=== PATIENT | male | born 1935 | race Caucasian/White ===

== ENCOUNTER 2019-06-23 12:47 | Inpatient (IN) | payer MEDICARE, SELFPAY ==
[2019-06-23] VITALS (7 sets, daily range): BP systolic 138–182; BP diastolic 80–98; PULSE 74–89; RESP 15–20; TEMP 36.4–37.2; O2SAT 92–98; BMI 27.1
--- NOTE | 2019-06-23 12:55 | ED_ITS ---
Entered by Raquel Madera, acting as scribe for Rhonda Hastings MD, [facility] [place] - Fall General: Chief Complaint: Fall Stated Complaint: FALL Time Seen by Provider: 06/23/19 12:55 Source: patient Mode of arrival: EMS Limitations: no limitations History of Present Illness: HPI Narrative: 84 yo Male presents to the ED with complaint of fall. Pt states that he went to the bathroom and was coming out his legs got weak and gave out causing him to fall. Pt states that his fall happened yesterday around 1600. Pt states that he stayed in the floor because he was afraid he would fall again and really get hurt. Pt states that he has pain on his left arm. Pt states that he is on warfarin. Pt states that he has some abdominal tenderness on the left side. Pt states that he has pain to his left ankle and leg with some mild swelling. Pt states that he gets Botox injections for his neck pain. complaint: fall Onset (ago): day(s) Fall from: standing Fall witnessed: no Place fall occurred: home Loss of consciousness: None Prolonged down time: yes Symptoms prior to fall: none Context: other (legs gave out) Location of injury: neck, chest and abdomen Location of injury - extremities: Left: arm, lower leg and ankle Associated symptoms-after fall: Reports abdominal pain and weakness; Denies chest pain, headache(s), neck pain or short of breath Review of Systems General: Reports: 10 or more systems reviewed and unremarkable except in HPI and below Const: Denies: fever, chills or body aches Eyes: Denies: change in vision or blurry vision ENMT: Denies: throat pain, enlarged tonsils, painful swallowing, hoarseness, mouth pain or swelling of lips/tongue Card: Denies: chest pain, palpitations, irregular heart rhythm, edema or swelling of feet/ankles Resp: Denies: shortness of breath, productive cough or non-productive cough GI: Reports: abdominal pain; Denies: nausea or vomiting : Denies: flank pain, painful urination, urinary frequency, urinary urgency or urinary hesitancy Musc: Reports: back pain, extremity pain and extremity swelling; Denies: neck pain Skin/Breast: Denies: rash, itching or redness Neuro: Denies: headache, numbness in extremities or weakness in extremities Endo: Denies: excessive urination, excessive thirst or tired all the time PFSH ED PFSH: Social History Smoking and tobacco status: former smoker Physical Exam Const: COMMON NORMALS: no apparent distress, average body habitus, oriented x3, no limitations, healthy appearing, alert and well nourished HENMT: COMMON NORMALS: normocephalic, head/scalp atraumatic and moist oral mucous membranes HEAD & SCALP: normocephalic and atraumatic Eye: COMMON NORMALS: PERRL, EOMs intact bilaterally, conjunctivae normal and no scleral icterus CONJUNCTIVA: Yes conjunctivae normal PUPIL: Yes PERRL Neck/C-Spine: COMMON NORMALS: full ROM, supple, no meningeal signs, no JVD and no carotid bruits Chest: COMMONS NORMALS: palpation of chest normal; negative for inspection of chest normal CHEST: Yes abnormal inspection of the chest (bruising) OTHER: bruising in lower chest duke Resp: COMMON NORMALS: normal respiratory effort, no retractions, no use of accessory muscles, clear to auscultation bilaterally and percussion normal AUSCULTATION: clear to auscultation bilaterally PERCUSSION: percussion normal Cardio: COMMON NORMALS: no JVD, regular rate, regular rhythm, S1 normal heart sound, S2 normal heart sound, no gallops, no clicks, no murmurs, no rub and peripheral pulses 2+ throughout RATE: regular rate RHYTHM: regular rhythm HEART SOUNDS: S1 normal and S2 normal PERIPHERAL PULSES: pulses 2+ throughout GI: COMMON NORMALS: normal to inspection, nondistended, normoactive bowel sounds, soft to palpation, no hepatosplenomegaly, no masses and no bruits; negative for non-tender PALPATION: Yes soft, Yes tender Details: LLQ and LUQ and Yes no hepatosplenomegaly : COMMON NORMALS: Yes no CVA tenderness BLADDER/KIDNEY EXAM: Yes no CVA tenderness Back/Pelvis: COMMON NORMALS: no CVA tenderness Extremity: COMMON NORMALS: normal to inspection, full ROM, normal capillary refill, no calf tenderness and no pedal edema LEFT LOWER EXTREMITY: Yes lower leg Left lower leg: Yes inspection (swelling) and Yes palpation (tenderness) and Yes ankle joint Left ankle: Yes inspection (swelling) and Yes palpation (tenderness) Neuro: COMMON NORMALS: oriented x3 SENSORIUM/ORIENTATION: Yes alert MENINGEAL SIGNS: Yes no meningeal signs Skin: COMMON NORMALS: no rashes or lesions noted, no wounds, skin turgor normal, no jaundice, no petechiae and no mottling GENERAL SKIN EXAM: no rashes or lesions noted and turgor normal Course Consultations: Consultation #1: Dr. Flores, hospitalist. He kindly accepted the patient to his service. Time: 15:30 Vital Signs: Vital signs: Vital Signs Temperature 98.2 F 06/23/19 12:47 Pulse Rate 79 06/23/19 15:28 Respiratory Rate 18 06/23/19 15:28 Blood Pressure 177/93 06/23/19 15:28 Pulse Oximetry 93 06/23/19 15:28 MDM - Fall MDM Narrative: Medical decision making narrative: 84-year-old gentleman who fell at home yesterday and had been laying on the ground for about 20 hours. Evaluation in the emergency department was negative for acute fractures or intracranial hemorrhage. He however has rhabdomyolysis that is significant. He is therefore being admitted for fluid hydration and monitoring of his status. Medical Records: Attestation: I reviewed the patient's medical records. Lab Data: Attestation: I reviewed the patient's lab results. Labs: Lab Results 06/23/19 06/23/19 06/23/19 Range/Units 13:20 13:20 13:20 WBC 9.8 (4.0-10.0) 10^3/ uL RBC 4.55 (4.1-5.3) 10^6/u L Hgb 14.0 (11.7-16.6) g/dL Hct 44.2 (42.0-52.0) % MCV 97.1 H (80-94) fL MCH 30.8 (28.0-34.0) pg MCHC 31.7 (30.0-36.0) g/dL RDW 13.6 (12.1-15.1) % Plt Count 174 (130-400) 10^3/c mm MPV 10.0 (7.4-10.4) fL Neut % (Auto) 83.3 % Lymph % (Auto) 5.1 % [place] % (Auto) 11.3 % Eos % (Auto) 0.0 % Baso % (Auto) 0.1 % Neut # (Auto) 8.2 H (1.8-7.7) 10^3/u L Lymph # (Auto) 0.5 L (0.8-4.8) 10^3/u L [place] # (Auto) 1.1 H (0.2-0.9) 10^3/u L Eos # (Auto) 0.0 (0.0-0.8) 10^3/u L Baso # (Auto) 0.0 (0.0-0.1) 10^3/u L Nucleated RBC % (a uto) 0 % Nucleated RBCs # 0.0 /100WBC PT 24.90 H (10.5-13.3) SECO NDS INR 2.23 H (0.8-1.2) Sodium 136 (136-145) mmol/L Potassium 4.6 (3.5-5.1) mmol/L Chloride 103 (98-107) mmol/L Carbon Dioxide 21 L (22-29) mmol/L Anion Gap 16.6 (5-19) BUN 27 H (8-23) mg/dL Creatinine 1.0 (0.7-1.2) mg/dL Glucose 132 H (65-115) mg/dL Calculated Osmolal ity 281 L (285-295) mOsm/k g Lactate (0.5-2.2) mmol/L Calcium 8.7 (8.5-10.5) mg/dL Total Bilirubin 0.6 (0.15-1.2) mg/dL AST 222 H (0-40) U/L ALT 50 H (0-41) U/L Alkaline Phosphata se 53 (40-130) IU/L Creatine Kinase 88038 H* (39-308) U/L Total Protein 6.5 L (6.6-8.7) g/dL Albumin 3.5 (3.5-5.2) g/dL Globulin 3.0 (1.3-4.6) g/dL 06/23/19 Range/Units 13:20 WBC (4.0-10.0) 10^3/ uL RBC (4.1-5.3) 10^6/u L Hgb (11.7-16.6) g/dL Hct (42.0-52.0) % MCV (80-94) fL MCH (28.0-34.0) pg MCHC (30.0-36.0) g/dL RDW (12.1-15.1) % Plt Count (130-400) 10^3/c mm MPV (7.4-10.4) fL Neut % (Auto) % Lymph % (Auto) % [place] % (Auto) % Eos % (Auto) % Baso % (Auto) % Neut # (Auto) (1.8-7.7) 10^3/u L Lymph # (Auto) (0.8-4.8) 10^3/u L [place] # (Auto) (0.2-0.9) 10^3/u L Eos # (Auto) (0.0-0.8) 10^3/u L Baso # (Auto) (0.0-0.1) 10^3/u L Nucleated RBC % (a uto) % Nucleated RBCs # /100WBC PT (10.5-13.3) SECO NDS INR (0.8-1.2) Sodium (136-145) mmol/L Potassium (3.5-5.1) mmol/L Chloride (98-107) mmol/L Carbon Dioxide (22-29) mmol/L Anion Gap (5-19) BUN (8-23) mg/dL Creatinine (0.7-1.2) mg/dL Glucose (65-115) mg/dL Calculated Osmolal ity (285-295) mOsm/k g Lactate 1.7 (0.5-2.2) mmol/L Calcium (8.5-10.5) mg/dL Total Bilirubin (0.15-1.2) mg/dL AST (0-40) U/L ALT (0-41) U/L Alkaline Phosphata se (40-130) IU/L Creatine Kinase (39-308) U/L Total Protein (6.6-8.7) g/dL Albumin (3.5-5.2) g/dL Globulin (1.3-4.6) g/dL Imaging Data^: CT Head: Radiologist's impression: [address] [address] [address] Scan Report Signed Patient: Rios Welsh #: [id number] : 5Acct#:[id number] Age/Sex: 84 / MADM Date: 06/23/19 Loc: ERRoom/Bed: Attending Dr: Ordering Provider/Ordering MD: Rhonda Hastings MD, [facility] [place] of Service: 06/23/19 Procedure(s): CT head wo con* [id number] Accession Number(s): [id number] Report Number: [id number] WS: [id number] CT scan of the head, 06/23/2019 Clinical Data: fall Comparison: CT head, 03/28/2017. DLP: 898.[address] scans at [facility] use at least one of these dose optimization techniques: automated exposure control; mA and/or kV adjustment per patient size (includes targeted exams where dose is matched to clinical indication); or iterative reconstruction. Findings: The ventricular system is moderately dilated without shift. No recent infarct or hemorrhage is seen. There are no abnormal intracerebral masses. The cerebellum and brainstem are not remarkable. Bony windows of the skull and skull base show no fractures or erosions. The mastoid air cells, internal auditory canals, sella turcica and intraorbital contents. The paranasal sinuses show mucosal thickening of the ethmoid, maxillary and sphenoid sinuses.. CT/CT head wo con* [id number] Impression: Negative CT scan of the head Dictated By:Valerie Dawson MD Signed By:Valerie Dawson MDSigned Date/Time:06/23/19 1404 DD/ 1358 CT C-Spine: Radiologist's impression: [address] [address] [address] Scan Report Signed Patient: Rios Welsh #: [id number] : 5Acct#:[id number] Age/Sex: 84 / MADM Date: 06/23/19 Loc: ERRoom/Bed: Attending Dr: Ordering Provider/Ordering MD: Rhonda Hastings MD, [facility] [place] Date of Service: 06/23/19 Procedure(s): CT cervical spin wo con* [id number] Accession Number(s): [id number] Report Number: [id number] WS: [id number] CT cervical spine. Additional two-dimensional coronal and sagittal reconstruction was performed. 06/23/2019 Clinical Data: fall Comparison: None. DLP: 836.[address] scans at [facility] use at least one of these dose optimization techniques: automated exposure control; mA and/or kV adjustment per patient size (includes targeted exams where dose is matched to clinical indication); or iterative reconstruction. Findings: No compression fractures are seen. There is degenerative disc narrowing at C5- C6, C6-C7 and C7-T1. There are subluxations at C3-C4, C4-C5, C5-C6, C6-C7 and C7-T1 of approximately 0.2 cm. These subluxations are probably arthritic in nature and unrelated to trauma. Osteoarthritic changes of facet joints is seen from C2-C3 through C6-C7. The spinous processes are in good alignment. The odontoid is unremarkable. There is no prevertebral soft tissue swelling. The soft tissues of the cervical spine and the lung apices are not remarkable. CT/CT cervical spin wo con* [id number] Impression: 1. Negative for cervical spine fracture 2. 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 3. 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 Dictated By:Valerie Dawson MD Signed By:Valerie Dawsonigned Date/Time:06/23/19 1411 DD/ 1404 Discharge Plan Discharge Patient Disposition: Admitted As Inpatient Clinical Impression: Traumatic rhabdomyolysis, Fall Condition: Stable Prescriptions: No Action primidone 50 mg tablet 50 mg PO DAILY RF: 0 isosorbide mononitrate 30 mg tablet extended release 24 hr 30 mg PO DAILY RF: 0 levothyroxine 75 mcg tablet 75 mcg PO DAILY RF: 0 baclofen 10 mg tablet 10 mg PO TID RF: 0 warfarin 5 mg tablet See Rx Instructions .ROUTE .COMPLEX RF: 0 nitroglycerin 0.4 mg tablet, sublingual 0.4 mg sublingual PRN PRN (Reason: Chest Pain) RF: 0 pravastatin 20 mg tablet 20 mg PO DAILY RF: 0 Referrals: Guy Garcia [Family Provider] - Coding Level of Care Code ED Pump Technician for Chg Fwd Exam Comprehensive The documentation recorded by the Santy conti Carmen, accurately reflects the service I personally performed and the decisions made by me, Rhonda Hastings MD, [facility] [place] Jun 23, 2019 12:47
--- NOTE | 2019-06-23 13:06 | CT_ITS ---
WS: [id number] CT cervical spine. Additional two-dimensional coronal and sagittal reconstruction was performed. 06/22 Clinical Data: fall Comparison: None. DLP: 836.[address] scans at [facility] use at least one of these dose optimization techniques: automat ed exposure control; mA and/or kV adjustment per patient size (includes targeted exams where dose is matched to clinical indication); or iterative reconstruction. Findings: No compression fractures are seen. There is degenerative disc narrowing at C5-C6, C6-C7 and C7-T1. Th ere are subluxations at C3-C4, C4-C5, C5-C6, C6-C7 and C7-T1 of approximately 0.2 cm. These subluxati ons are probably arthritic in nature and unrelated to trauma. Osteoarthritic changes of facet joints is seen from C2-C3 through C6-C7. The spinous processes are in good alignment. The odontoid is unrema rkable. There is no prevertebral soft tissue swelling. The soft tissues of the cervical spine and the lung apices are not remarkable. CT/CT cervical spin wo con* [id number] Impression: 1. Negative for cervical spine fracture 2. 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 3. 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
--- NOTE | 2019-06-23 13:06 | CT_ITS ---
WS: [id number] CT scan of the head, 06/23/2019 Clinical Data: fall Comparison: CT head, 03/28/2017. DLP: 898.[address] scans at [facility] use at least one of these dose optimization techniques: automat ed exposure control; mA and/or kV adjustment per patient size (includes targeted exams where dose is matched to clinical indication); or iterative reconstruction. Findings: The ventricular system is moderately dilated without shift. No recent infarct or hemorrhage is seen. There are no abnormal intracerebral masses. The cerebellum and brainstem are not remarkable. Bony windows of the skull and skull base show no fractures or erosions. The mastoid air cells, cisco certified internetwork expert al auditory canals, sella turcica and intraorbital contents. The paranasal sinuses show mucosal thick ening of the ethmoid, maxillary and sphenoid sinuses.. CT/CT head wo con* [id number] Impression: Negative CT scan of the head
[2019-06-23 13:30] LABS: Basophils % 0.1 %; Hematocrit 44.2 % (42.0-52.0); Lymphocytes # 0.5 10^3/uL (0.8-4.8); Lymphocytes % 5.1 %; Mean Corpuscular HGB Conc 31.7 g/dL (30.0-36.0); Mean Corpuscular Hemoglobin 30.8 pg (28.0-34.0); Mean Corpuscular Volume 97.1 fL (80-94); Monocytes # 1.1 10^3/uL (0.2-0.9); Monocytes % 11.3 %; Neutrophils # 8.2 10^3/uL (1.8-7.7); Neutrophils % 83.3 %; Nucleated Red Blood Cells % 0 %; Platelet Count 174 10^3/cmm (130-400); Red Blood Count 4.55 10^6/uL (4.1-5.3); Red Cell Distribution Width 13.6 % (12.1-15.1); White Blood Count 9.8 10^3/uL (4.0-10.0)
[2019-06-23 13:45] LABS: Alanine Aminotransferase 50 U/L (0-41); Albumin Level 3.5 g/dL (3.5-5.2); Alkaline Phosphatase 53 IU/L (40-130); Anion Gap 16.6 (5-19); Aspartate Amino Transferase 222 U/L (0-40); Blood Urea Nitrogen 27 mg/dL (8-23); Calcium 8.7 mg/dL (8.5-10.5); Carbon Dioxide 21 mmol/L (22-29); Chloride 103 mmol/L (98-107); Creatinine Clr Calc Pharmacy 64.4367; Glucose 132 mg/dL (65-115); Osmolality Calculated 281 mOsm/kg (285-295); Potassium 4.6 mmol/L (3.5-5.1); Sodium 136 mmol/L (136-145); Total Bilirubin 0.6 mg/dL (0.15-1.2); Total Protein 6.5 g/dL (6.6-8.7)
[2019-06-23 13:46] LABS: Lactate (Lactic Acid level) 1.7 mmol/L (0.5-2.2)
[2019-06-23 13:53] LABS: INR 2.23 (0.8-1.2)
[2019-06-23 13:58] LABS: Creatine Phosphokinase 15590 U/L (39-308)
--- NOTE | 2019-06-23 13:58 | PC.NURSE ---
Lizet in lab called to report a critical CK of 15,590 at this time.
[2019-06-23] MEDS: sodium chloride 0.9% 1,000 ML 999 ML IV (14:02)
--- NOTE | 2019-06-23 14:03 | CT_ITS ---
WS: [id number] CT scan of the chest without IV contrast, additional two-dimensional coronal and sagittal reconstruct ion was performed. 06/23/2019 Clinical Data: fall Comparison: None. DLP: 742.[address] scans at [facility] use at least one of these dose optimization techniques: automat ed exposure control; mA and/or kV adjustment per patient size (includes targeted exams where dose is matched to clinical indication); or iterative reconstruction. Findings: No nodules, masses or effusions are seen. No pneumonia or pneumothorax is seen. The pulmonary vascula rity is not increased. Pacemaker wires end in the heart. Coronary artery calcification is present. Th e heart size is normal with no pericardial effusion. The pulmonary arterial system and thoracic aorta demonstrate no abnormalities or dilatations. The aortic arch shows calcification. There is no axilla ry or significant mediastinal adenopathy. The upper abdomen demonstrates no abnormalities. There is degenerative arthritic change and degenerat zenobia disc narrowing at multiple levels of the thoracic spine. CT/CT chest wo con [id number] Impression: Negative CT scan of the chest.
--- NOTE | 2019-06-23 15:30 | ECG_ITS ---
Measurements Intervals [place] Rate: 84 P: 55 MO: 188 QRS: 3 QRSD: 89 T: 5 QT: 387 QTc: 458 SINUS RHYTHM WITH OCCASIONAL VENTRICULAR PREMATURE COMPLEXES WITH OCCASIONAL SUPRAVENTRICULAR PREMATURE COMPLEXES SEPTAL MYOCARDIAL INFARCTION [40+ ms Q WAVE IN V1/V2], PROBABLY OLD Compared to ECG 03/28/2017 12:51:55 Myocardial infarct finding now present ST (T wave) deviation no longer present Electronically Signed On 06-23-2019 17:43:12 CDT by Sharon Jeffries M.D. [email or web address]
[2019-06-23 16:11] LABS: Troponin(5th) Baseline 87 ng/mL (0-15)
[2019-06-23 16:28] LABS: Creatine Phosphokinase 17509 U/L (39-308)
[2019-06-23] MEDS: sodium chloride 0.9% 1,000 ML 100 ML IV (16:30)
--- NOTE | 2019-06-23 16:50 | USCV_ITS ---
Carlos Welsh Age: 84 Gender: M : 1935 Exam Date: 06/23/2019 18:55 Ordering Phys: Jose Alberto Barrow MD Technologist: Delfina Reece Exam Location: [facility] [place] Indication: CAD BP: 168 / 98 HR: 83 Rhythm: Sinus Technical Quality: Adequate MEASUREMENTS (Male / Female) Normal Values 2D ECHO LV Diastolic Diameter PLAX 4.4 cm 4.2 - 5.9 / 3.9 - 5.3 cm LV Systolic Diameter PLAX 2.7 cm LV Chamber Size 2.7 cm IVS Diastolic Thickness 1.2 cm 0.6 - 1.0 / 0.6 - 0.9 cm IVS Systolic Thickness 1.7 cm LVPW Diastolic Thickness 1.5 cm 0.6 - 1.0 / 0.6 - 0.9 cm LVPW Systolic Thickness 2.0 cm RV Chamber Size 2.4 cm LVOT Diameter 2.0 cm LV Ejection Fraction 2D Teich 67.8 % LV Ejection Fraction MOD 2C 44.1 % LV Ejection Fraction 2C AL 43.1 % LA Diameter 3.1 cm LA Width 3.9 cm LA Height 3.0 cm RA Width 2.9 cm RA Height 3.0 cm Aorta at Sinotubular Diameter 3.2 cm M-MODE LV Diastolic Diameter MM 5.6 cm 4.2 - 5.9 / 3.9 - 5.3 cm LV Systolic Diameter MM 4.0 cm LV Ejection Fraction MM Teich 53.7 % IVS Diastolic Thickness MM 0.8 cm 0.6 - 1.0 / 0.6 - 0.9 cm IVS Systolic Thickness MM 1.2 cm LVPW Diastolic Thickness MM 0.7 cm 0.6 - 1.0 / 0.6 - 0.9 cm LVPW Systolic Thickness MM 1.3 cm Aortic Annulus Diameter 3.6 cm LA Ao Ratio MM 0.8 MV E Point Septal Separation 0.7 cm DOPPLER AV Peak Velocity 125.0 cm/s LVOT Peak Velocity 89.0 cm/s AV Area Cont Eq vti 2.7 cm squared AV Area Cont Eq pk 2.3 cm squared MV Area PHT 3.2 cm squared Mitral E to A Ratio 0.8 MV E' Velocity 9.0 cm/s Mitral E to MV E' Ratio 7.4 Mitral E to LV E' Lateral Ratio 7.7 Mitral E to LV E' Septal Ratio 7.2 TR Peak Velocity 178.0 cm/s TR Peak Gradient 12.7 mmHg TV Peak E Velocity 85.0 cm/s Right Atrial Pressure 3.0 mmHg Pulmonary Artery Systolic Pressu 15.7 mmHg PV Peak Velocity 81.0 cm/s RV Acceleration Time 0.1 s RV Ejection Time 0.3 s RV AcT/ET 0.3 FINDINGS Left Ventricle Left ventricular cavity not well visualized. Normal left ventricular wall thickness. Left ventricular ejection fraction is estimated at 45%. Apical hypokinesia Right Ventricle The right ventricle is normal in size and function. Right Atrium The right atrium is normal in size. Left Atrium The left atrium is normal in size. Mitral Valve Structurally normal mitral valve without significant stenosis or prolapse. There is no mitral regurgitation. Aortic Valve Structurally normal aortic valve without significant sclerosis or stenosis. There is no aortic regurgitation. Tricuspid Valve Structurally normal tricuspid valve without significant stenosis or regurgitation. Pulmonary artery systolic pressure is normal. Pulmonic Valve Structurally normal pulmonic valve without significant stenosis. There is no pulmonic regurgitation. Pericardium Normal pericardium without effusion. Aorta Normal ascending aorta dimension. CONCLUSIONS Colleen Dutta MD (Electronically Signed) Final Date: 24 June 2019 09:53 S
--- NOTE | 2019-06-23 16:55 | P.HP_ITS ---
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 As per the patient he was at his baseline health around 4 to 5 days ago when he started feeling weak. Yesterday in the afternoon at around 4:30 PM he was going to the bathroom and he felt weak in his legs and he slumped onto the floor. As per the patient he was feeling very weak and was not able to move till around today afternoon when he got up some strength and called his friend who brought him to the ER. Before feeling weak patient denied of having any symptoms of dizziness, aura, palpitations, shortness of breath, chest pain. Patient states he had a similar event in March 2019 when he had felt dizzy and collapsed onto the floor and was taken to the [facility] in [place] where he was found to have in-stent stenosis and underwent PCI. At present patient: Denies of having any chest pain, shortness of breath, nausea, vomiting, cough, flulike symptoms, fever, dysuria, diarrhea, constipation, swelling in his legs but does complain of feeling extremely weak and generalized myalgias. In the ER patient was found to have a CPK of more than 15,000 so hospitalist service was asked for further evaluation and management. Review of Systems Const: Reports: body aches and malaise; Denies: fever, chills, change in appetite, night sweats, diaphoresis, change in sleep pattern, daytime sleepiness or snoring Eyes: Denies: change in vision, blurry vision, photophobia, eye discomfort or eye discharge ENMT: Denies: throat pain, enlarged tonsils, hoarseness, mouth pain, oral sores/lesions, dry mouth, tinnitus, nasal congestion or post nasal drip Card: Denies: chest pain, palpitations, irregular heart rhythm, edema, swelling of feet/ankles, lightheadedness, syncope, pre-syncope, shortness of breath on exertion, shortness of breath when lying down, leg pain with exertion or bluish discoloration of hands/feet Resp: Denies: shortness of breath, productive cough, non-productive cough, wheezing, stridor, pain on inspiration, change in phlegm color, coughing up blood or chest congestion GI: Denies: abdominal pain, nausea, vomiting, vomiting blood, coffee grounds in vomit, difficulty swallowing, heartburn/indigestion, diarrhea, constipation, bloating, cramping, change in bowel habits, painful bowel movements, blood in stool or black tarry stool : Denies: flank pain, difficulty urinating, painful urination, urinary frequency, urinary urgency, urinary hesitancy, urinary dribbling, difficulty starting urination, change in urine stream, nighttime urination or blood in urine Musc: Reports: joint pain; Denies: neck pain, back pain, extremity pain, joint swelling, redness, joint stiffness or limited range of motion Neuro: Denies: headache, numbness in extremities, weakness in extremities, changes in sensation, lack of coordination, difficulty walking, frequent falls, dizziness, vertigo, confusion, slurred speech, difficulty communicating thoughts or seizure-like activity Psych: Denies: anxiety, depression, mood swings, panic attacks, hopelessness or irritability Endo: Denies: excessive urination, excessive thirst, tired all the time, cold intolerance, excessive sweating, flushing or heat intolerance Daniel/Lymph: Denies: easy bruising or easy bleeding All/Imm: Denies: tongue swelling, facial swelling or acute wheezing Medications/Allergies Home Medications Medication Instructions Recorded Confirmed Last Taken Type baclofen 10 mg PO TID 06/23/19 06/23/19 06/21/19 History isosorbide mononitrate 30 mg PO DAILY 06/23/19 06/23/19 06/22/19 History levothyroxine 75 mcg PO DAILY 06/23/19 06/23/19 06/21/19 History nitroglycerin 0.4 mg SUBLINGUAL PRN PRN 06/23/19 06/23/19 Unknown History pravastatin 20 mg PO DAILY 06/23/19 06/23/19 06/21/19 History primidone 50 mg PO DAILY 06/23/19 06/23/19 06/21/19 History warfarin See Rx Instructions .ROUTE .COMPLEX 06/23/19 06/23/19 06/22/19 History Allergies Allergy/AdvReac Type Severity Reaction Status Date / Time Unable to Assess Allergy Unverified 06/23/19 12:56 PFSH Acute PFSH: Medical History (Updated 06/23/19 @ 17:06 by Jose Alberto Barrow MD) Atrial fibrillation and flutter CAD (coronary artery disease) Chronic anticoagulation Hypothyroid Surgical History (Updated 06/23/19 @ 17:07 by Jose Alberto Barrow MD) History of back surgery History of heart artery stent Stented coronary artery Social History (Updated 06/23/19 @ 17:11 by Jose Alberto Barrow MD) Smoking and tobacco status: former smoker Alcohol intake: unknown Substance/Drug Use: never Household members: none Housing: Apartment Vitals/I&O/Wt Last Vital Signs Temp 98.2 F 06/23/19 12:47 Pulse 87 06/23/19 16:26 Resp 15 06/23/19 16:26 BP 168/98 06/23/19 16:26 Pulse Ox 98 06/23/19 16:26 06/23/19 06/23/19 06/23/19 06:59 14:59 22:59 Intake Total 1000 / 1000 Balance 1000 / 1000 Weight last 48 hrs Weight 90.718 kg Physical Exam Narrative: EXAM NARRATIVE: General: No acute distress, AO x3 HEENT: PERRLA, pupils bilaterally equal and reactive, Ptosis of right eye. Chest: Normal vesicular breath sounds, no added sounds, equal good air entry bilaterally CVS: S1-S2 regular, no murmurs, no tachycardia, no gallops, no rubs Abdomen: Soft, nontender, no organomegaly, bowel sounds present Neuro: No focal deficits, no facial deformity, AO x3, b/l lower limbs power 3/5 Skin: Patient has multiple areas of redness and erythema present on both of his legs below the knees, bilateral chest creases, forehead and eyelids, increased localized touch to temperature at the chest previous and below the knees. Data : 06/23/19 13:20 06/23/19 13:20 A&P Assessment and plan (1) Traumatic rhabdomyolysis: Status: Acute Qualifiers: Encounter type: initial encounter Qualified Code(s): T79.6XXA - Traumatic ischemia of muscle, initial encounter Code(s): T79.6XXA - Traumatic ischemia of muscle, initial encounter (2) Fall: Status: Acute Qualifiers: Encounter type: initial encounter Qualified Code(s): W19.XXXA - Unspecified fall, initial encounter Code(s): W19.XXXA - Unspecified fall, initial encounter (3) Atrial fibrillation and flutter: Status: Acute Code(s): I48.91 - Unspecified atrial fibrillation; I48.92 - Unspecified atrial flutter (4) Stented coronary artery: Status: Acute Code(s): Z95.5 - Presence of coronary angioplasty implant and graft (5) CAD (coronary artery disease): Status: Acute Code(s): I25.10 - Atherosclerotic heart disease of [place] coronary artery without angina pectoris (6) Hypothyroid: Status: Acute Code(s): E03.9 - Hypothyroidism, unspecified (7) Chronic anticoagulation: Status: Acute Code(s): Z79.01 - long term (current) use of anticoagulants Additional A&P Information Fall: Mechanical given the history. CT head negative for any kind of bleed, CT chest negative for any fractures. Will get pelvic x-rays to rule out fractures. Rhabdomyolysis: Traumatic. IV hydration with normal saline at 100 cc/h. Patient has received 2 L fluid in the ER. We will continue to monitor CPK daily. Even though there are no guidelines will give sodium bicarbonate 150 mEq stat. Check proBNP, cycle troponins, procalcitonin, flu swab, iron panel. Given the physical exam of skin changes and weakness in proximal muscle cannot rule out dermatomyositis. Check ESR, CRP, [facility] LANDEN profile, anti-smooth muscle, anti-Latosha 1, anti-SSA antibodies. Atrial fibrillation: Patient does not seem to be on any rate limiting medications at home. Admit with telemetry. If needed we will start him on metoprolol 25 twice daily. Continue warfarin at home dose. INR therapeutic at the moment. CAD: History of multiple PCI's in the past. C/w statin, Imdur at home dose. No ASA or plavix on medlist. Will get documents from his primary care physician and photographer still at [facility]. Check echocardiogram to check for ejection fraction. Hypothyroidism: Continue home dose of levothyroxine for now. Check TSH. CODE STATUS: Discussed with patient in detail regarding his CODE STATUS he states he is full code. He states if he is not able to take his medical decisions his daughters will be making his medical decisions with help of his friend who is bedside. Lovenox for DVT prophylaxis. Attestations Medical Necessity Statement*: > 2 MN for rhabdomyolysis Time Spent in Patient Care: Greater than 35 minutes Coding Level of Care Code Acute Spindle Tester for [facility] Fwd Diagnoses Traumatic rhabdomyolysis T79.6XXA Encounter type: initial encounter Fall W19.XXXA Encounter type: initial encounter Atrial fibrillation and flutter I48.91; I48.92 Stented coronary artery Z95.5 CAD (coronary artery disease) I25.10 Hypothyroid E03.9 Chronic anticoagulation Z79.01
[2019-06-23 18:04] LABS: Procalcitonin 0.34 ng/mL (0-0.5)
[2019-06-23 18:05] LABS: NT Pro B Type Natriuretic Pept 6238 pg/mL (0-450)
[2019-06-23] MEDS: metoprolol tartrate 25 mg Tablet PO (18:19)
[2019-06-23] MEDS: famotidine 20 mg/2 mL INJ IVP (18:19)
[2019-06-23 18:23] LABS: Iron 29 ug/dL (59-158); Percent Saturation 14.1 % (20-50); Total Iron Binding Capacity 205 mcg/dl; Unsaturated Iron Binding 176 ug/dL (112-347)
[2019-06-23 18:25] LABS: Troponin 5 2HR 93.23 ng/mL (0-15); Troponin 5 2HR Delta 6.23 ABS# (0-10)
[2019-06-23 18:32] LABS: C Reactive Protein 56.7 mg/L (0.0-4.9); Thyroid Stimulating Hormone 0.16 uIU/mL (0.27-4.20)
[2019-06-23 18:42] LABS: Erythrocyte Sedimentation Rate 18 mm/hr (0-10)
[2019-06-23] MEDS: baclofen 10 mg Tablet PO (20:53)
[2019-06-23] MEDS: atorvastatin 40 mg Tablet 20 MG PO (20:53)
[2019-06-23 22:00] LABS: Troponin 5 6HR 76.89 ng/mL (0-15)
[2019-06-23 22:15] LABS: Troponin 5 6HR Delta -10.11 ng/L (0-12)
[2019-06-23 22:19] LABS: Influenza A by IFA Negative (Negative); Influenza B by IFA Negative (Negative)
[2019-06-23 22:28] LABS: Free T4 Free Thyroxine 1.19 ng/dL (0.82-1.77); T3 Free 1.8 PG/ML (2.0-4.4)
[2019-06-24] VITALS (13 sets, daily range): BP systolic 112–164; BP diastolic 70–92; PULSE 56–87; RESP 16–24; TEMP 36.1–36.7; O2SAT 91–98
--- NOTE | 2019-06-24 00:11 | PC.NURSE ---
Patient increasingly confused, attempting to get out of bed, wanting to go home. Redirected, reorientated. Patient still agitated and wanting to get out of bed, sitter order received, patient sitter at bedside. Will continue to monitor patient.
[2019-06-24] MEDS: haloperidol inj 5 mg/mL INJ 1 mL IVP (03:28)
--- NOTE | 2019-06-24 03:31 | PC.NURSE ---
Addendum entered by Marj Page RN 06/24/19 03:35: Patient also refusing to wear telemetry. Original Note: Patient having increased agitiation, aggresion and confusion. Notified Dr Chu. Orders received for Haldol. Haldol given, will continue to monitor patient.
[2019-06-24] MEDS: sodium chloride 0.9% 1,000 ML 100 ML IV ×2 (04:48→23:22)
[2019-06-24] MEDS: famotidine 20 mg/2 mL INJ IVP ×2 (05:04→17:10)
[2019-06-24 07:19] LABS: Basophils % 0.1 %; Eosinophils % 0.1 %; Hematocrit 41.6 % (42.0-52.0); Hemoglobin 13.8 g/dL (11.7-16.6); Lymphocytes # 1.1 10^3/uL (0.8-4.8); Lymphocytes % 11.2 %; Mean Corpuscular HGB Conc 33.2 g/dL (30.0-36.0); Mean Corpuscular Hemoglobin 31.4 pg (28.0-34.0); Mean Corpuscular Volume 94.5 fL (80-94); Mean Platelet Volume 10.3 fL (7.4-10.4); Monocytes # 1.1 10^3/uL (0.2-0.9); Monocytes % 11.4 %; Neutrophils # 7.4 10^3/uL (1.8-7.7); Neutrophils % 76.8 %; Nucleated Red Blood Cells % 0 %; Platelet Count 158 10^3/cmm (130-400); Red Cell Distribution Width 13.7 % (12.1-15.1); White Blood Count 9.6 10^3/uL (4.0-10.0)
[2019-06-24 07:24] LABS: Anion Gap 12.9 (5-19); Blood Urea Nitrogen 20 mg/dL (8-23); Calcium 8.6 mg/dL (8.5-10.5); Carbon Dioxide 25 mmol/L (22-29); Chloride 104 mmol/L (98-107); Glucose 120 mg/dL (65-115); Osmolality Calculated 284 mOsm/kg (285-295); Potassium 3.9 mmol/L (3.5-5.1); Sodium 138 mmol/L (136-145)
[2019-06-24 07:46] LABS: Creatine Phosphokinase 13195 U/L (39-308)
[2019-06-24] MEDS: ipratropium-albuterol 3 mL Neb INHALATION ×3 (08:54→21:19)
[2019-06-24] MEDS: levothyroxine 150 mcg Tablet 75 MCG PO (09:17)
[2019-06-24] MEDS: baclofen 10 mg Tablet PO ×3 (09:18→20:41)
[2019-06-24] MEDS: primidone 50 mg Tablet PO (09:18)
[2019-06-24] MEDS: metoprolol tartrate 25 mg Tablet PO ×2 (09:18→17:10)
[2019-06-24] MEDS: isosorbide mononitrate ER 30 mg Tablet PO (09:18)
--- NOTE | 2019-06-24 10:19 | PC.CHAP ---
Pastoral Care Encounter/Spiritual Assessment Type of Contact [] Declined [place] visit [] Patient/Family/Request visit [] Outpatient visit [] Follow-up visit [] Physician referral [] Code/Alert [x] Routine visit [] Staff referral [] Actively dying [] Patient sleeping [] Family support [] [] Out of room [] Palliative care [] [] Receiving care in room [] Pre-surgical visit [] Trauma [] Long length of stay [] ICU visit [] Other: Relational/Emotional Strength [x] Patient feels connected with others/family/visitors/staff [] Distress [] Loneliness/isolation [] Abandonment Spirituality of Patient [x] Person of Navya [x] Attends Adventist of their [place] [] Believes in Prayer [] Reads Bible or Nondenominational materials [] There are Spiritual issues to be addressed Pharmacy Coordinator Interventions [x] Prayer [x] Active listening []x Non-anxious presence [] Spiritual/emotional support [] Crisis/trauma care [] Spiritual counseling [] Bereavement support [] Provided bereavement packet [] Provided Bible/devotional materials [] Provided toy/stuffed animal, coloring book to patient or family member [] Provided Communion [] Anointing/[place] [] Salvation [x] Completed spiritual assessment [] Other: Impact on Illness or Injury [] Angry [] Fearful [] Anxious [] Often cries [] Exhaustion [] Unable to work [] Unable to attend advent [] Unable to walk/stand [] Unable to read [] Unable to drive [] Unable to eat/drink [] Unable to sleep [] Unable to be with family [] Patient intubated [] Other: Summary patient very sore Time spent with patient 10 min
--- NOTE | 2019-06-24 10:30 | P.PN_ITS ---
Subjective Subjective: Interval history: G no acute events overnight. Patient was mildly no acute events overnight other than the headache patient was mildly agitated for which she was given 0.5 mg of Haldol and a sitter was ordered. On examination today morning patient is AAO x3 having insight of what is going on but is mildly confused of which hospital this is. He is complaining of myalgias.denies of having any nausea, vomiting, headache, palpitations, difficulty breathing, cough. Vitals/I&O/Wt Last Vital Signs Temp 98.0 F 06/24/19 07:43 Pulse 87 06/24/19 09:02 Resp 17 06/24/19 09:02 BP 164/81 06/24/19 07:43 Pulse Ox 98 06/24/19 09:02 06/23/19 06/24/19 06/24/19 22:59 06:59 14:59 Intake Total 1360 / 1360 1000 / 2360 Balance 1360 / 1360 1000 / 2360 Weight last 48 hrs Weight 90.718 kg Physical Exam Narrative: EXAM NARRATIVE: General: No acute distress, AO x3 HEENT: PERRLA, pupils bilaterally equal and reactive, Ptosis of right eye. Chest: Normal vesicular breath sounds, no added sounds, equal good air entry bilaterally CVS: S1-S2 regular, no murmurs, no tachycardia, no gallops, no rubs Abdomen: Soft, nontender, no organomegaly, bowel sounds present Neuro: No focal deficits, no facial deformity, AO x3, b/l lower limbs power 3/5 Skin: Patient has multiple areas of redness and erythema present on both of his legs below the knees, bilateral chest creases, forehead and eyelids, increased localized touch to temperature at the chest previous and below the knees. Data : 06/24/19 07:05 06/24/19 07:05 Micro: Microbiology 06/23/19 17:48 Blood Culture - Preliminary Blood SPECIMEN COLLECTED 06/23/19 13:20 Blood Culture - Preliminary Blood SPECIMEN COLLECTED A&P Assessment and plan (1) Traumatic rhabdomyolysis: Status: Acute Qualifiers: Encounter type: initial encounter Qualified Code(s): T79.6XXA - Traumatic ischemia of muscle, initial encounter Code(s): T79.6XXA - Traumatic ischemia of muscle, initial encounter (2) Fall: Status: Acute Qualifiers: Encounter type: initial encounter Qualified Code(s): W19.XXXA - Unspecified fall, initial encounter Code(s): W19.XXXA - Unspecified fall, initial encounter (3) Atrial fibrillation and flutter: Status: Acute Code(s): I48.91 - Unspecified atrial fibrillation; I48.92 - Unspecified atrial flutter (4) Stented coronary artery: Status: Acute Code(s): Z95.5 - Presence of coronary angioplasty implant and graft (5) CAD (coronary artery disease): Status: Acute Code(s): I25.10 - Atherosclerotic heart disease of [place] coronary artery without angina pectoris (6) Hypothyroid: Status: Acute Code(s): E03.9 - Hypothyroidism, unspecified (7) Chronic anticoagulation: Status: Acute Code(s): Z79.01 - watermelon harvesting supervisor (current) use of anticoagulants Additional A&P Information Fall: Mechanical given the history. CT head negative for any kind of bleed, CT chest negative for any fractures. Will get pelvic x-rays to rule out fractures. Flu negative, ESR mildly elevated to 18 CRP more elevated to 56, proBNP 6200, TIBC consistent with iron deficiency anemia. Rhabdomyolysis: Traumatic. IV hydration with normal saline at 100 cc/h. Patient has received 2 L fluid in the ER. We will continue to monitor CPK Q12h. Coming down but slowly. Start on oral sodium bicarb TID x1 day for now. Will monitor for alkalosis. Lasix 20 mg IV stat. Given the physical exam of skin changes and weakness in proximal muscle cannot rule out dermatomyositis. [facility] LANDEN profile, anti-smooth muscle, anti-Latosha 1, anti-SSA antibodies awaited. Atrial fibrillation: Patient does not seem to be on any rate limiting medications at home. Rate controlled Admit with telemetry. If needed we will start him on metoprolol 25 twice daily. Continue warfarin at home dose. INR therapeutic at the moment. CAD: History of multiple PCI's in the past. C/w statin, Imdur at home dose. No ASA or plavix on medlist. Will start on ASA OSH docs still awaited. ECHO: 45% with apical hypokinesis Hypothyroidism: TSH appreciated. Mildly elevated. T3 low. Will increase levothyroxine to 100 mcg CODE STATUS: Discussed with patient in detail regarding his CODE STATUS he states he is full code. He states if he is not able to take his medical decisions his daughters will be making his medical decisions with help of his friend who is bedside. Lovenox for DVT prophylaxis. 1:1 sitter Will discuss with patient and family for SNF placement given extensive weakness. PT eval Attestations Medical Necessity Statement*: rhabdo Time Spent in Patient Care: Greater than 35 minutes Coding Level of Care Code Acute Flight Engineer Inspector for [facility] Fwd Diagnoses Traumatic rhabdomyolysis T79.6XXA Encounter type: initial encounter Fall W19.XXXA Encounter type: initial encounter Atrial fibrillation and flutter I48.91; I48.92 Stented coronary artery Z95.5 CAD (coronary artery disease) I25.10 Hypothyroid E03.9 Chronic anticoagulation Z79.01
[2019-06-24] MEDS: FUROsemide 10 mg/mL SDV 2mL 20 MG IVP (12:31)
[2019-06-24] MEDS: warfarin 5 mg Tablet PO (17:11)
[2019-06-24] MEDS: sodium bicarbonate 650 mg Tablet PO ×2 (17:11→20:41)
--- NOTE | 2019-06-24 17:26 | PC.NURSE ---
Nurse noted a new finding of right lip drooping and not equal when asked to smile. Charge nurse notified and verified assessment. All other extremeities equal in strength and no other deficits noted. Message left for Dr Barrow awaiting call back. Also noted patient has a history of [place] Palsy.
[2019-06-24 19:05] LABS: Creatine Phosphokinase 9521 U/L (39-308)
--- NOTE | 2019-06-24 19:07 | PC.NURSE ---
SERGEI THOMSON CAME TO THIS NURSE EARLIER THIS EVENING SAYING PATIENT HAD RIGHT SIDED FACIAL DROOP. I DID NEURO CHECKS WITH PATIENT AND CALLED AURELIA SMALL ENGINE SPECIALIST INTO THE ROOM. NEURO CHECKS WERE GOOD. PATIENT HAD EQUAL STRENGTH BILATERALLY. WAS ALERT AND ORIENTED. DR. HERNANDEZ NOTIFIED. PATIENT HAS HAD BELLS PALSY IN THE PAST. DR. HERNANDEZ FELT THIS WAS BELLS PALSY AGAIN. CONTINUING TO MONITOR AT THIS TIME.
[2019-06-24] MEDS: atorvastatin 40 mg Tablet 20 MG PO (20:41)
[2019-06-25] VITALS (18 sets, daily range): BP systolic 90–168; BP diastolic 50–101; PULSE 63–96; RESP 16–20; TEMP 36.3–36.6; O2SAT 92–97
[2019-06-25] MEDS: ipratropium-albuterol 3 mL Neb INHALATION ×4 (02:53→20:16)
[2019-06-25] MEDS: famotidine 20 mg/2 mL INJ IVP ×2 (05:41→16:47)
[2019-06-25 06:23] LABS: Basophils % 0.1 %; Eosinophils # 0.1 10^3/uL (0.0-0.8); Eosinophils % 0.9 %; Hematocrit 39.7 % (42.0-52.0); Lymphocytes # 1.5 10^3/uL (0.8-4.8); Lymphocytes % 19.8 %; Mean Corpuscular HGB Conc 32.7 g/dL (30.0-36.0); Mean Corpuscular Hemoglobin 31.3 pg (28.0-34.0); Mean Corpuscular Volume 95.4 fL (80-94); Mean Platelet Volume 9.9 fL (7.4-10.4); Monocytes % 13.4 %; Neutrophils % 65.5 %; Nucleated Red Blood Cells % 0 %; Platelet Count 160 10^3/cmm (130-400); Red Blood Count 4.16 10^6/uL (4.1-5.3); Red Cell Distribution Width 13.8 % (12.1-15.1); White Blood Count 7.6 10^3/uL (4.0-10.0)
[2019-06-25 06:37] LABS: Alanine Aminotransferase 72 U/L (0-41); Alkaline Phosphatase 47 IU/L (40-130); Anion Gap 12.4 (5-19); Aspartate Amino Transferase 207 U/L (0-40); Blood Urea Nitrogen 18 mg/dL (8-23); Calcium 8.5 mg/dL (8.5-10.5); Carbon Dioxide 27 mmol/L (22-29); Chloride 104 mmol/L (98-107); Globulin 2.7 g/dL (1.3-4.6); Glucose 108 mg/dL (65-115); Osmolality Calculated 287 mOsm/kg (285-295); Potassium 3.4 mmol/L (3.5-5.1); Sodium 140 mmol/L (136-145); Total Bilirubin 0.5 mg/dL (0.15-1.2); Total Protein 5.7 g/dL (6.6-8.7)
[2019-06-25 06:43] LABS: INR 2.87 (0.8-1.2)
[2019-06-25 07:03] LABS: Creatine Phosphokinase 7376 U/L (39-308)
[2019-06-25] MEDS: levothyroxine 100 mcg Tablet PO (08:30)
[2019-06-25] MEDS: baclofen 10 mg Tablet PO ×3 (08:30→22:22)
[2019-06-25] MEDS: aspirin 81 mg EC Tablet PO (08:30)
[2019-06-25] MEDS: sodium bicarbonate 650 mg Tablet PO (08:30)
[2019-06-25] MEDS: metoprolol tartrate 25 mg Tablet PO ×2 (08:30→18:09)
[2019-06-25] MEDS: primidone 50 mg Tablet PO (08:30)
[2019-06-25] MEDS: isosorbide mononitrate ER 30 mg Tablet PO (08:30)
[2019-06-25] MEDS: sodium chloride 0.9% 1,000 ML 100 ML IV ×2 (08:31→18:09)
--- NOTE | 2019-06-25 08:54 | PM.PN ---
Subjective Subjective: Interval history: No acute events overnight. On examination of the morning patient is a lot more alert oriented, denying of any shortness of breath, chest pain, headache, palpitations, shortness of breath. Lab work, ins and outs noted. Vitals/I&O/Wt Last Vital Signs Temp 97.4 F L 06/25/19 08:00 Pulse 70 06/25/19 08:17 Resp 19 H 06/25/19 08:12 BP 144/71 06/25/19 08:00 Pulse Ox 93 06/25/19 08:12 06/24/19 06/25/19 06/25/19 22:59 06:59 14:59 Intake Total 60 / 1060 480 / 1540 1035 / 1035 Output Total 3 / 403 400 / 400 Balance 60 / 660 477 / 1137 635 / 635 Weight last 48 hrs Weight 90.9 kg Weight 90.718 kg Physical Exam Narrative: EXAM NARRATIVE: General: No acute distress, AO x3 HEENT: PERRLA, pupils bilaterally equal and reactive, Ptosis of right eye. Chest: Normal vesicular breath sounds, no added sounds, equal good air entry bilaterally CVS: S1-S2 regular, no murmurs, no tachycardia, no gallops, no rubs Abdomen: Soft, nontender, no organomegaly, bowel sounds present Neuro: No focal deficits, no facial deformity, AO x3, b/l lower limbs power 3/5 Skin: Patient has multiple areas of redness and erythema present on both of his legs below the knees, bilateral chest creases, forehead and eyelids, increased localized touch to temperature at the chest previous and below the knees. Data : 06/25/19 06:05 06/25/19 06:05 Micro: Microbiology 06/23/19 17:48 Blood Culture - Preliminary Blood NEGATIVE TO DATE 06/23/19 13:20 Blood Culture - Preliminary Blood NEGATIVE TO DATE A&P Assessment and plan (1) Traumatic rhabdomyolysis: Status: Acute Qualifiers: Encounter type: initial encounter Qualified Code(s): T79.6XXA - Traumatic ischemia of muscle, initial encounter Code(s): T79.6XXA - Traumatic ischemia of muscle, initial encounter (2) Fall: Status: Acute Qualifiers: Encounter type: initial encounter Qualified Code(s): W19.XXXA - Unspecified fall, initial encounter Code(s): W19.XXXA - Unspecified fall, initial encounter (3) Atrial fibrillation and flutter: Status: Acute Code(s): I48.91 - Unspecified atrial fibrillation; I48.92 - Unspecified atrial flutter (4) Stented coronary artery: Status: Acute Code(s): Z95.5 - Presence of coronary angioplasty implant and graft (5) CAD (coronary artery disease): Status: Acute Code(s): I25.10 - Atherosclerotic heart disease of [place] coronary artery without angina pectoris (6) Hypothyroid: Status: Acute Code(s): E03.9 - Hypothyroidism, unspecified (7) Chronic anticoagulation: Status: Acute Code(s): Z79.01 - assisted (current) use of anticoagulants Additional A&P Information Fall: Mechanical given the history. CT head negative for any kind of bleed, CT chest negative for any fractures. Will get pelvic x-rays to rule out fractures. Flu negative, ESR mildly elevated to 18 CRP more elevated to 56, proBNP 6200, TIBC consistent with iron deficiency anemia. Rhabdomyolysis: Traumatic. IV hydration with normal saline at 100 cc/h. Patient has received 2 L fluid in the ER. We will continue to monitor CPK Q12h. 7000 today. We will hold off on bicarb supplementation today as morning suggestive of bicarb of 27 to avoid alkalosis. We will repeat Lasix 20 mg IV stat. Given the physical exam of skin changes and weakness in proximal muscle cannot rule out dermatomyositis. [facility] LANDEN profile, anti-smooth muscle, anti-Latosha 1, anti-SSA antibodies awaited. Atrial fibrillation: Patient does not seem to be on any rate limiting medications at home. Rate controlled Admit with telemetry. Have started him on metoprolol 25 twice daily which he is tolerating well will continue same. Continue warfarin at home dose. INR therapeutic at the moment. CAD: History of multiple PCI's in the past. C/w statin. No ASA or plavix on medlist. Will start on ASA OSH docs still awaited. ECHO: 45% with apical hypokinesis Hypertension: At home patient is on Imdur 30 mg daily for possible hypertension/history of CAD. Patient was orthostatic positive though asymptomatic today morning so we will hold off on Imdur for now. This could most likely be his cause of weakness and standing up for last couple of weeks. We will try to reintroduce Imdur at a lower dose. Hypothyroidism: TSH appreciated. Mildly elevated. T3 low. Will increase levothyroxine to 100 mcg CODE STATUS: Discussed with patient in detail regarding his CODE STATUS he states he is full code. He states if he is not able to take his medical decisions his daughters will be making his medical decisions with help of his friend who is bedside. Lovenox for DVT prophylaxis. Dispo: Discussed in detail with patient and his caregiver/Ms. Briceno regarding need of patient going to SNF for further rehabilitation and safe discharge given his deconditioning and weakness. Patient agrees for SNF placement. Have placed a care coordination consult. Patient is a lot more oriented today will discontinue one-to-one sitter. Attestations Medical Necessity Statement*: Traumatic rhabdomyolysis Time Spent in Patient Care: Greater than 35 minutes Coding Level of Care Code Acute Front Office Supervisor for [facility] Fwd Diagnoses Traumatic rhabdomyolysis T79.6XXA Encounter type: initial encounter Fall W19.XXXA Encounter type: initial encounter Atrial fibrillation and flutter I48.91; I48.92 Stented coronary artery Z95.5 CAD (coronary artery disease) I25.10 Hypothyroid E03.9 Chronic anticoagulation Z79.01
[2019-06-25 13:47] LABS: Anti-Double Strand DNA AB <1 IU/mL; Jo-1 Antibody <1.0 NEG AI (<1.0 NEG); SM/RNP Antibodies <1.0 NEG AI (<1.0 NEG); SS-B/LA IGG <1.0 NEG AI (<1.0 NEG); Scleroderma Ab(Scl-70) Ab <1.0 NEG AI (<1.0 NEG); Ss-A/Ro Igg <1.0 NEG AI (<1.0 NEG)
[2019-06-25] MEDS: warfarin 5 mg Tablet PO (16:46)
[2019-06-25 18:46] LABS: Creatine Phosphokinase 7632 U/L (39-308)
[2019-06-25] MEDS: FUROsemide 10 mg/mL SDV 2mL 20 MG IVP (22:20)
[2019-06-25] MEDS: atorvastatin 40 mg Tablet 20 MG PO (22:22)
--- NOTE | 2019-06-25 22:40 | PC.NURSE ---
fall pt's bed alarm was not set and pt went to get up to go to the bathroom. pt was found on floor on knees, with head under curtain, by JANEL Panchal. this nurse was told pt pulled out IV. pt was sitting on side of bed with ancillary staff when this nurse entered room. pt had no apparent abrasions, bruises, or bleeding. pt's neighbor in [place] told this nurse that the pt had fallen into his bedside table, shoving the bedside table into [address]'s groin. the pt in [place] told this nurse that [address] may have hit his head on bedside table.
--- NOTE | 2019-06-25 23:43 | CTR_ITS ---
PROCEDURE INFORMATION: Exam: CT Head Without Contrast Exam date and time: 06/25/2019 12:09 AM Age: 84 years old Clinical indication: Injury or trauma; Fall; Initial encounter; Blunt trauma (contusions or hematomas); Additional info: PT fell TECHNIQUE: Imaging protocol: Computed tomography of the head without contrast. Total DLP: 969.05 mGy-cm Radiation optimization: All CT scans at this facility use at least one of these dose optimization techniques: automated exposure control; mA and/or kV adjustment per patient size (includes targeted exams where dose is matched to clinical indication); or iterative reconstruction. COMPARISON: CT head wo con* [id number] 06/23/2019 1:24 PM FINDINGS: Brain: No acute intracranial hemorrhage or mass effect. There is decreased attenuation in the periventricular white matter, likely from microvascular disease. No definite acute infarct by CT. Ventricles: Ventricle size is normal for age. Bones/joints: No definite acute skull fracture. Sinuses: Mild mucosal thickening in the ethmoid, maxillary, sphenoid, and frontal sinuses. Mastoid air cells: No significant acute finding. Vasculature: Vascular calcifications in the internal carotid and vertebral basilar systems. CT/CT head wo con* [id number] IMPRESSION: 1. No acute intracranial hemorrhage or mass effect. 2. Changes of microvascular disease. 3. Other findings discussed above. Radiation Dose CTDIVOL = (mGy): DLP = 969.05 (mGy-cm)
[2019-06-26] VITALS (8 sets, daily range): BP systolic 127–160; BP diastolic 68–90; PULSE 62–86; RESP 15–18; TEMP 36.4–36.8; O2SAT 92–95
[2019-06-26] MEDS: ipratropium-albuterol 3 mL Neb INHALATION ×2 (03:30→08:26)
[2019-06-26] MEDS: famotidine 20 mg/2 mL INJ IVP (05:18)
[2019-06-26 06:22] LABS: Creatine Phosphokinase 5821 U/L (39-308)
[2019-06-26] MEDS: sodium chloride 0.9% 1,000 ML 100 ML IV (08:32)
[2019-06-26] MEDS: baclofen 10 mg Tablet PO (08:32)
[2019-06-26] MEDS: primidone 50 mg Tablet PO (08:33)
[2019-06-26] MEDS: metoprolol tartrate 25 mg Tablet PO (08:33)
[2019-06-26] MEDS: levothyroxine 100 mcg Tablet PO (08:33)
[2019-06-26] MEDS: aspirin 81 mg EC Tablet PO (08:34)
[2019-06-26 09:24] LABS: Basophils % 0.2 %; Eosinophils # 0.1 10^3/uL (0.0-0.8); Eosinophils % 1.6 %; Hematocrit 44.3 % (42.0-52.0); Hemoglobin 14.5 g/dL (11.7-16.6); Lymphocytes # 1.9 10^3/uL (0.8-4.8); Lymphocytes % 21.1 %; Mean Corpuscular HGB Conc 32.7 g/dL (30.0-36.0); Mean Corpuscular Hemoglobin 31.5 pg (28.0-34.0); Mean Corpuscular Volume 96.1 fL (80-94); Mean Platelet Volume 10.8 fL (7.4-10.4); Monocytes # 1.1 10^3/uL (0.2-0.9); Monocytes % 12.2 %; Neutrophils # 5.8 10^3/uL (1.8-7.7); Neutrophils % 64.6 %; Nucleated Red Blood Cells % 0 %; Platelet Count 205 10^3/cmm (130-400); Red Blood Count 4.61 10^6/uL (4.1-5.3); Red Cell Distribution Width 13.6 % (12.1-15.1)
--- NOTE | 2019-06-26 09:35 | PC.SOCIAL ---
IMM Page 2 of IMM given to patient. Initialed, dated, and timed and placed in chart. Copy provided to patient.
[2019-06-26 09:42] LABS: Alanine Aminotransferase 93 U/L (0-41); Albumin Level 3.4 g/dL (3.5-5.2); Alkaline Phosphatase 54 IU/L (40-130); Anion Gap 19.3 (5-19); Aspartate Amino Transferase 213 U/L (0-40); Blood Urea Nitrogen 12 mg/dL (8-23); Calcium 8.6 mg/dL (8.5-10.5); Carbon Dioxide 26 mmol/L (22-29); Chloride 98 mmol/L (98-107); Globulin 3.4 g/dL (1.3-4.6); Glucose 100 mg/dL (65-115); Osmolality Calculated 286 mOsm/kg (285-295); Potassium 3.3 mmol/L (3.5-5.1); Sodium 140 mmol/L (136-145); Total Bilirubin 0.7 mg/dL (0.15-1.2); Total Protein 6.8 g/dL (6.6-8.7)
--- NOTE | 2019-06-26 12:23 | PM.DCS ---
Discharge Providers Date of Admission: 06/23/19 15:19 Date of Discharge: June 26, 2019 Attending Provider at Admission: Jose Alberto Barrow MD Attending Provider at Discharge: Jose Alberto Barrow MD Diagnoses at Discharge Discharge Diagnosis (1) Traumatic rhabdomyolysis: Status: Acute Qualifiers: Encounter type: initial encounter Qualified Code(s): T79.6XXA - Traumatic ischemia of muscle, initial encounter (2) Fall: Status: Acute Qualifiers: Encounter type: initial encounter Qualified Code(s): W19.XXXA - Unspecified fall, initial encounter (3) Atrial fibrillation and flutter: Status: Acute (4) Stented coronary artery: Status: Acute (5) CAD (coronary artery disease): Status: Acute (6) Hypothyroid: Status: Acute (7) Chronic anticoagulation: Status: Acute Reason for Visit Reason for Visit: Reason For Visit: FALL Hospital Course Discharge Summary: Carlos Welsh is a 84 year old male with past medical history of CAD post multiple PCI, atrial fibrillation on chronic anticoagulation with warfarin hypothyroidism, hypertension, 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 As per the patient he was at his baseline health around 4 to 5 days ago when he started feeling weak. Yesterday in the afternoon at around 4:30 PM he was going to the bathroom and he felt weak in his legs and he slumped onto the floor. As per the patient he was feeling very weak and was not able to move till around today afternoon when he got up some strength and called his friend who brought him to the ER. Before feeling weak patient denied of having any symptoms of dizziness, aura, palpitations, shortness of breath, chest pain. Patient states he had a similar event in March 2019 when he had felt dizzy and collapsed onto the floor and was taken to the [facility] in [place] where he was found to have in-stent stenosis and underwent PCI. At present patient: Denies of having any chest pain, shortness of breath, nausea, vomiting, cough, flulike symptoms, fever, dysuria, diarrhea, constipation, swelling in his legs but does complain of feeling extremely weak and generalized myalgias. In the ER patient was found to have a CPK of more than 15,000 so hospitalist service was asked for further evaluation and management. He was admitted to the floors for conservative management of traumatic rhabdomyolysis. He was started on IV fluids while monitoring him for fluid overload. He responded well to the treatment and his CPK level came down from 19,000-5000. Patient was seen by physical therapist and has been feeling weak. He was found to be orthostatic for which her dose of isosorbide mononitrate was decreased to half. His medical records from his primary care physician and natural gas treating unit operator were requested and were reviewed. For the history of nonsustained V. tach he was started on low-dose metoprolol to which he tolerated well and his blood pressures remained within normal limits while being in the hospital. On telemetry he did have few episodes of VPCs. Further work-up of rhabdomyolysis as patient had some generalized rash on both of his legs, under his chest and face work-up was sent for dermatomyositis and is still awaited. Because his CPK levels were trending down on its own with IV fluids he was not started on any steroids. His hospital stay was complicated by fall while trying to get out of bed for which CT head was done to rule out any bleed. Patient has been discharged in hemodynamically stable condition and advised to follow-up with his primary care physician in a week with CPK levels and with his natural gas treating unit operator for the next 2 weeks. Physical Exam Narrative: EXAM NARRATIVE: General: No acute distress, AO x3 HEENT: PERRLA, pupils bilaterally equal and reactive, Ptosis of right eye. Chest: Normal vesicular breath sounds, no added sounds, equal good air entry bilaterally CVS: S1-S2 regular, no murmurs, no tachycardia, no gallops, no rubs Abdomen: Soft, nontender, no organomegaly, bowel sounds present Neuro: No focal deficits, no facial deformity, AO x3, b/l lower limbs power 3/5 Skin: Patient has multiple areas of redness and erythema present on both of his legs below the knees, bilateral chest creases, forehead and eyelids, increased localized touch to temperature at the chest previous and below the knees. Discharge Data Data Completed and Pending: Completed Studies During Hospitalization Category Date Time Status CT cervical spin wo con* [id number] Stat Cat Scan 06/23/19 13:[address] chest wo con 7 1250 Urgent Cat Scan 06/23/19 14:[address] head wo con* 7 0450 Stat Cat Scan 06/23/19 13:[address] head wo con* 7 0450 Stat Cat Scan 06/25/19 23:43 Completed CV echo complete* [id number] Routine Ultrasound 06/23/19 16:50 Completed Pending at discharge Category Date Time Status Blood Culture Sta t Lab 06/23/19 17:48 Results SS A Ro Sjogrens Antibody Routine Lab 06/23/19 17:48 Received SS-B/LA Antibody IGG Routine Lab 06/23/19 17:48 Received Smooth Muscle AB Screen w/Refl Stat Lab 06/23/19 17:48 Received Labs from last 24 hours 06/26/19 06/26/19 06/26/19 04:40 04:40 04:40 WBC 9.0 RBC 4.61 Hgb 14.5 Hct 44.3 MCV 96.1 H MCH 31.5 MCHC 32.7 RDW 13.6 Plt Count 205 MPV 10.8 H Neut % (Auto) 64.6 Lymph % (Auto) 21.1 Emanuel % (Auto) 12.2 Eos % (Auto) 1.6 Baso % (Auto) 0.2 Neut # (Auto) 5.8 Lymph # (Auto) 1.9 Emanuel # (Auto) 1.1 H Eos # (Auto) 0.1 Baso # (Auto) 0.0 Nucleated RBC % (a uto) 0 Nucleated RBCs # 0.0 Sodium 140 Potassium 3.3 L Chloride 98 Carbon Dioxide 26 Anion Gap 19.3 H BUN 12 Creatinine 0.7 Glucose 100 Calculated Osmolal ity 286 Calcium 8.6 Total Bilirubin 0.7 AST 213 H ALT 93 H Alkaline Phosphata se 54 Creatine Kinase 5821 H* Total Protein 6.8 Albumin 3.4 L Globulin 3.4 SERGE-1 Antibody SS-A/Ro IgG Antibo dy SS-B/La IgG Antibo dy Anti-nRNP/Sm IgG A b Scl-70 Scleroderma Ab Anti-ds DNA IgG Ab 06/25/19 06/23/19 16:58 17:48 WBC RBC Hgb Hct MCV MCH MCHC RDW Plt Count MPV Neut % (Auto) Lymph % (Auto) Emanuel % (Auto) Eos % (Auto) Baso % (Auto) Neut # (Auto) Lymph # (Auto) Emanuel # (Auto) Eos # (Auto) Baso # (Auto) Nucleated RBC % (a uto) Nucleated RBCs # Sodium Potassium Chloride Carbon Dioxide Anion Gap BUN Creatinine Glucose Calculated Osmolal ity Calcium Total Bilirubin AST ALT Alkaline Phosphata se Creatine Kinase 7632 H* Total Protein Albumin Globulin SERGE-1 Antibody <1.0 neg SS-A/Ro IgG Antibo dy <1.0 neg SS-B/La IgG Antibo dy <1.0 neg Anti-nRNP/Sm IgG A b <1.0 neg Scl-70 Scleroderma Ab <1.0 neg Anti-ds DNA IgG Ab <1 Vitals: Last Vital Signs Temp 97.9 F 06/26/19 11:31 Pulse 74 06/26/19 11:31 Resp 18 06/26/19 11:31 BP 129/79 06/26/19 11:31 Pulse Ox 95 06/26/19 11:31 Discharge Plan Discharge Patient Disposition: Xfer SNF Condition: Stable Prescriptions: New metoprolol tartrate 25 mg Tablet 25 mg PO BID Qty: 60 RF: 0 levothyroxine [Levoxyl] 100 mcg Tablet 100 mcg PO DAILY Qty: 30 RF: 0 isosorbide mononitrate 30 mg tablet extended release 24 hr 15 mg PO DAILY Qty: 30 RF: 0 Continued primidone 50 mg tablet 50 mg PO DAILY RF: 0 baclofen 10 mg tablet 10 mg PO TID RF: 0 warfarin 5 mg tablet See Rx Instructions .ROUTE .COMPLEX RF: 0 nitroglycerin 0.4 mg tablet, sublingual 0.4 mg sublingual PRN PRN (Reason: Chest Pain) RF: 0 pravastatin 20 mg tablet 20 mg PO DAILY RF: 0 Discontinued isosorbide mononitrate 30 mg tablet extended release 24 hr 30 mg PO DAILY RF: 0 levothyroxine 75 mcg tablet 75 mcg PO DAILY RF: 0 Discharge Orders: Discharge Order (Routine); Ordered 06/26/19 Ordered By: Jose Alberto Barrow Referrals: Guy Garcia [Family Provider] - 7-10 days Discharge Diet: Cardiac Discharge Activity: Increase activity as tolerated Activity Restrictions/Additional Instructions: Check CPK levels in 4 to 5 days and follow-up with her primary care physician. Follow-up with a natural gas treating unit operator in [facility] ( Dr. Wren) in 2 weeks. Discharge Attestations Time Spent in Discharge Care*: greater than 30 min Specific Discharge Activities: Specific discharge activities: educating patient, educating and/or supporting family/caregiver, discussing with comp field case manager/social workers/dc planners, documenting/other paperwork and evaluating patient/reviewing data Status at Discharge: Cognitive status at discharge: cognitively intact, Behavioral status at discharge: cooperative, Functional status at discharge: independent ambulation Overall status at discharge: patient is progressing back to baseline Quality Metrics Clinical Quality Measures During this hospital stay, did patient experience: None Coding Level of Care Code Acute Electrical Engineering Director for [employer] Diagnoses Traumatic rhabdomyolysis T79.6XXA Encounter type: initial encounter Fall W19.XXXA Encounter type: initial encounter Atrial fibrillation and flutter I48.91; I48.92 Stented coronary artery Z95.5 CAD (coronary artery disease) I25.10 Hypothyroid E03.9 Chronic anticoagulation Z79.01
[2019-06-26] MEDS: FUROsemide 10 mg/mL SDV 2mL 20 MG IVP (13:07)
== END 2019-06-26 14:51 | disposition skilled nursing facility (03) | DRG 565 ==
LOC: ER 16:13 → MEDSURG 16:24
PROVIDERS: Admitting Provider Student in an Organized Health Care Education/Training Program; Emergency Provider Family Medicine; Family Provider Physician Assistant Medical; Visit Provider Student in an Organized Health Care Education/Training Program
DX: T79.6XXA Traumatic ischemia of muscle, initial encounter (principal); I48.92 Unspecified atrial flutter; W19.XXXA Unspecified fall, initial encounter; I48.91 Unspecified atrial fibrillation; Z95.5 Presence of coronary angioplasty implant and graft; I25.10 Atherosclerotic heart disease of native coronary artery without angina pectoris; E03.9 Hypothyroidism, unspecified; Z79.01 Long term (current) use of anticoagulants; I10 Essential (primary) hypertension; M43.6 Torticollis; G51.0 Bell's palsy; Y92.89 Other specified places as the place of occurrence of the external cause; Z87.891 Personal history of nicotine dependence
CPT/HCPCS: 12345; 36415; 70450; 71250; 72125; 80048; 80053; 82550; 83516; 83540; 83550; 83605; 83880; 84145; 84439; 84443; 84481; 84484; 85025; 85610; 85651; 86140; 86225; 86235; 87040; 87804; 93005; 93306; 94640; 94664; 96375; 97110; 97162; 97166; 97530; 99283; J1630; J1940; J3490; J7030

== ENCOUNTER 2020-12-30 09:25 | Outpatient (CLI) | payer MEDICARE, SELFPAY ==
--- NOTE | 2020-12-30 10:00 | IR_ITS ---
WS: [id number] CERVICAL MYELOGRAM HISTORY: M54.2 - Cervicalgia COMPARISON: 01/21/2019. Prior CT 06/23/2019. FLUOROSCOPY TIME: 2.5 minutes. Procedure, risks and complications were explained to the patient. Risks including bleeding, infection , headaches, allergic reaction and seizures. Consent has been obtained. With the patient in prone position the skin over the lumbar region is cleansed with ChloraPrep and an esthetized with lidocaine. 22-gauge spinal needle is inserted into the thecal sac at the appropriate level determined by fluoroscopy. Omnipaque 240; 12 ml is injected slowly under fluoroscopy with no co mplications. Needle bevel is perpendicular to the longitudinal fibers of the dura. Stylet is reinsert ed prior to removal of the needle. Patient tolerated the procedure well. Patient will proceed to CT f or further evaluation. Severe degenerative scoliosis and facet joint arthritis throughout the cervical spine. Complete oblit eration of the disc spaces with facet joint narrowing and sclerosis. Vertebral bodies are difficult t o visualize individually due to the osteopenia. C4 anterolisthesis by 5 mm. With flexion and extensio n is no instability but very little movement of the neck. IR/IR myelogram sp cervical 96480 IMPRESSION: 1. Uncomplicated cervical myelogram. Please see CT report to follow. 2. Severe scoliosis with facet joint arthritis and disc space narrowing.
[2020-12-30] MEDS: iohexol 240 mg/mL 50 mL Btl INTRATHECA (10:25)
--- NOTE | 2020-12-30 11:30 | CT_ITS ---
WS: [id number] CT CERVICAL MYELOGRAM HISTORY: M54.2 - Cervicalgia Technique: All CT scans at [facility] use at least one of these dose optimization techniques: automated exposure control; mA and/or kV adjustment per patient size (includes targeted exams where dose is matched to clinical indication); or iterative reconstruction. DLP: 1111.0 mGycm COMPARISON: 06/23/2019 Limited but adequate opacification of the thecal sac with contrast. Severe degenerative levoscoliosis of the cervical spine. There is significant rotary scoliosis and fa cet joint arthritis and osteopenia at all levels. Craniocervical junction appears to be normally alig sapphire. Odontoid process is intact. There is severe narrowing of the RIGHT C1 and C2 articulation. C4 an terolisthesis by 4.5 mm. There is multifocal areas of facet joint ankylosis on the RIGHT extending fr om the C2 level to C6. C1-C2: Severe narrowing of the predental space. Essentially complete obliteration of the space by ost eophytes. C2-C3: Severe bilateral facet joint arthritis. Mild encroachment upon the ventral thecal sac by osteo phytes with moderate RIGHT stenosis. C3-C4: Severe hypertrophic osteophyte formation at the facet joints, RIGHT greater than LEFT. Near co mplete obliteration of the RIGHT foramen and mild narrowing on the LEFT. C4-C5: Severe bilateral facet joint arthritis and hypertrophy of the bone. Greatest on the RIGHT with near complete obliteration of the RIGHT foramen and moderate on the LEFT. C5-C6: Diffuse osteophytic ridging around the vertebral bodies with severe RIGHT and mild LEFT facet joint hypertrophy. Moderate to severe RIGHT foraminal stenosis and mild on the LEFT. C6-C7: Diffuse osteophytic ridging with marked bilateral facet joint arthritis, RIGHT greater than LE FT. Mild central with moderate to severe foraminal stenosis, RIGHT greater than LEFT. Osteophytic ridging with moderate to severe bilateral foraminal stenosis, RIGHT greater than LEFT. CT/CT cervical spine w con [id number] IMPRESSION: 1. Severe degenerative levoscoliosis of the cervical spine. 2. Severe facet joint arthritis with areas of fusion and ankylosis on the RIGH T with multifocal areas of high-grade stenosis. 3. Moderate to severe RIGHT foraminal stenosis at C3-4, C4-5, C5-6 and C6-7. S tenosis is essentially due to hypertrophic bone formation from the articular fa cets. 4. Moderate LEFT foraminal stenosis at C4-5 and C6-7.
== END 2020-12-30 09:26 | disposition home or self-care (01) ==
LOC: RADWPI 09:29
PROVIDERS: PCP Physician Assistant Medical; Visit Provider Orthopaedic Surgery
DX: M41.82 Other forms of scoliosis, cervical region (principal); M47.812 Spondylosis without myelopathy or radiculopathy, cervical region; M48.02 Spinal stenosis, cervical region
CPT/HCPCS: 62302; 72040; 72126; 85610; Q9966

== ENCOUNTER → 2021-01-23 10:22 | Outpatient (BNVA) | payer MEDICARE, SELFPAY | PROVIDERS: PCP Physician Assistant Medical; Referring Provider Orthopaedic Surgery; Visit Provider Anesthesiology Pain Medicine | DX: G89.29 Other chronic pain (principal); M54.2 Cervicalgia; I25.10 Atherosclerotic heart disease of native coronary artery without angina pectoris; I10 Essential (primary) hypertension; Z87.891 Personal history of nicotine dependence | CPT/HCPCS: 99205 ==

== ENCOUNTER → 2021-02-13 13:47 | Outpatient (BNVA) | payer MEDICARE, SELFPAY | PROVIDERS: PCP Physician Assistant Medical; Visit Provider Anesthesiology Pain Medicine | DX: G89.29 Other chronic pain (principal); M47.812 Spondylosis without myelopathy or radiculopathy, cervical region; M54.12 Radiculopathy, cervical region | CPT/HCPCS: 64490; 64491; 64492; J3490 ==

== ENCOUNTER → 2021-03-06 09:47 | Outpatient (BNVA) | payer MEDICARE, SELFPAY | PROVIDERS: PCP Physician Assistant Medical; Visit Provider Anesthesiology Pain Medicine | DX: G89.29 Other chronic pain (principal); M41.82 Other forms of scoliosis, cervical region; M47.812 Spondylosis without myelopathy or radiculopathy, cervical region; M48.02 Spinal stenosis, cervical region | CPT/HCPCS: 99214 ==

== ENCOUNTER → 2021-03-29 12:55 | Outpatient (BNVA) | payer MEDICARE, SELFPAY | PROVIDERS: PCP Physician Assistant Medical; Visit Provider Anesthesiology Pain Medicine | DX: M47.812 Spondylosis without myelopathy or radiculopathy, cervical region (principal) | CPT/HCPCS: 64633; 64634; J1030 ==

== ENCOUNTER → 2021-04-12 10:21 | Outpatient (BNVA) | payer MEDICARE, SELFPAY | PROVIDERS: PCP Physician Assistant Medical; Visit Provider Anesthesiology Pain Medicine | DX: G89.29 Other chronic pain (principal); M41.82 Other forms of scoliosis, cervical region; M47.812 Spondylosis without myelopathy or radiculopathy, cervical region; M48.02 Spinal stenosis, cervical region; Z87.891 Personal history of nicotine dependence | CPT/HCPCS: 99214 ==

== ENCOUNTER 2021-07-07 12:12 | Outpatient (CLI) | payer MEDICARE, SELFPAY ==
--- NOTE | 2021-07-07 12:18 | USCV_ITS ---
Carlos Welsh Age: 86 Gender: M : 1935 Exam Date: 07/07/2021 12:51 Ordering Phys: Aleja Long Technologist: Mila Elder [place] [facility] [place]: HISTORY: Heaviness of Lt Leg PROCEDURES: Venous duplex imaging was performed in bilateral lower extremities. The following venous structures were evaluated: common femoral vein, greater saphenous vein, superficial femoral vein, and the popliteal vein. In addition, the posterior tibial were evaluated. FINDINGS: Only refulx seen was at GSV below Rt. Knee. CONCLUSIONS 1. No evidence of DVT in the above-mentioned identifiable veins. 2. Significant venous reflux of greater than 500 ms were noted at the below-knee segment of the greater saphenous vein on the right side. The vein was at a depth of 0.62 cm from the surface and 0.42 cm in diameter 3. No significant venous reflux on the left side For the details the venous dimensions, depth from the surface and reflux times, please refer to the attached report Dr Marisela Slaughter MD [facility] (Electronically Signed) Final Date: 10 July 2021 23:11 S
== END 2021-07-07 12:13 | disposition home or self-care (01) ==
PROVIDERS: PCP Registered Nurse; Visit Provider Registered Nurse
DX: I87.2 Venous insufficiency (chronic) (peripheral) (principal)
CPT/HCPCS: 93970

== ENCOUNTER → 2022-12-05 08:45 | Outpatient (BNVA) | payer MEDICARE, SELFPAY | PROVIDERS: PCP Registered Nurse; Visit Provider Nurse Practitioner Family | DX: L57.0 Actinic keratosis (principal); L57.8 Other skin changes due to chronic exposure to nonionizing radiation; L81.4 Other melanin hyperpigmentation; D22.5 Melanocytic nevi of trunk; L85.3 Xerosis cutis | CPT/HCPCS: 17004; 99213 ==

== ENCOUNTER → 2023-03-11 09:54 | Outpatient (BNVA) | payer MEDICARE, SELFPAY | PROVIDERS: PCP Registered Nurse; Visit Provider Nurse Practitioner Family | DX: L57.0 Actinic keratosis (principal); L57.8 Other skin changes due to chronic exposure to nonionizing radiation; D22.5 Melanocytic nevi of trunk; L81.4 Other melanin hyperpigmentation; L72.0 Epidermal cyst; D48.5 Neoplasm of uncertain behavior of skin | CPT/HCPCS: 11102; 17000; 99213 ==

== ENCOUNTER → 2023-05-09 09:13 | Outpatient (BNVA) | payer MEDICARE, BC, SELFPAY | PROVIDERS: PCP Registered Nurse; Visit Provider Dermatology | DX: C44.519 Basal cell carcinoma of skin of other part of trunk (principal) | CPT/HCPCS: 17262 ==

== ENCOUNTER → 2023-09-12 14:48 | Outpatient (BNVA) | payer MEDICARE, BC, SELFPAY | PROVIDERS: PCP Registered Nurse; Visit Provider Dermatology | DX: L57.0 Actinic keratosis (principal); L81.4 Other melanin hyperpigmentation; L57.8 Other skin changes due to chronic exposure to nonionizing radiation; D22.0 Melanocytic nevi of lip; Z85.828 Personal history of other malignant neoplasm of skin | CPT/HCPCS: 17000; 99213 ==

== ENCOUNTER → 2025-01-22 10:16 | Outpatient (BNVA) | payer MEDICARE, SELFPAY | PROVIDERS: PCP Registered Nurse; Visit Provider Internal Medicine Cardiovascular Disease | DX: I49.5 Sick sinus syndrome (principal); I25.10 Atherosclerotic heart disease of native coronary artery without angina pectoris; I48.0 Paroxysmal atrial fibrillation; Z79.01 Long term (current) use of anticoagulants; Z79.82 Long term (current) use of aspirin; E78.5 Hyperlipidemia, unspecified; I47.19 Other supraventricular tachycardia; Z98.890 Other specified postprocedural states; Z95.5 Presence of coronary angioplasty implant and graft; Z95.0 Presence of cardiac pacemaker; Z87.891 Personal history of nicotine dependence; R07.9 Chest pain, unspecified; I48.91 Unspecified atrial fibrillation; I48.92 Unspecified atrial flutter; R06.02 Shortness of breath | CPT/HCPCS: 36415; 80048; 83880; 85025; 93005; 99204 ==

== ENCOUNTER 2025-02-10 09:59 | Outpatient (CLI) | payer MEDICARE, SELFPAY ==
[2025-02-10 11:11] LABS: Anion Gap 16.0 (5-19); Blood Urea Nitrogen 19 mg/dL (8-23); Calcium 9.0 mg/dL (8.5-10.5); Carbon Dioxide 25 mmol/L (22-29); Chloride 104 mmol/L (98-107); Glucose 124 mg/dL (65-115); NT Pro B Type Natriuretic Pept 419 pg/mL (0-450); Osmolality Calculated 294 mOsm/kg (285-295); Potassium 5.0 mmol/L (3.5-5.1); Sodium 140 mmol/L (136-145)
== END 2025-02-10 10:00 | disposition home or self-care (01) ==
PROVIDERS: PCP Registered Nurse; Visit Provider Internal Medicine Cardiovascular Disease
DX: R06.09 Other forms of dyspnea (principal); I25.10 Atherosclerotic heart disease of native coronary artery without angina pectoris
CPT/HCPCS: 36415; 80048; 83880

== ENCOUNTER 2025-02-15 09:18 | Outpatient (CLI) | payer MEDICARE, SELFPAY ==
[2025-02-15 09:44] VITALS: BMI 24.4
--- NOTE | 2025-02-15 09:47 | ECG_ITS ---
[facility] Date: 2025-02-15 Pat Name: Carlos Welsh Department: Room: Gender: Male Senior Sales Director: : 1935 Requested By: Adelso Luna Order Number: [id number] Pathak MD: Jordan Tolbert M.D. Interpretive Statements LEXISCAN SESTAMIBI STRESS TEST Procedure: At the baseline, the blood pressure was 140/81 mmHg with a heart rate of 79 bpm. The electrocardiogram showed atrial fibrillation, normal axis with normal ST and T's. The Lexiscan was infused over a period of 20 seconds. A total of 0.4 mg of Lexiscan was infused. The stress phase was continued for a total of 5 minutes. Heart rate was at the end of stress phase was 75 bpm and a blood pressure of 87/57 mmHg. The EKG at the peak infusion revealed atrial fibrillation with no significant ST-T wave changes. Sestamibi was injected 20 seconds after the Lexiscan infusion. Blood pressure at the end of recovery phase was 105/61 mmHg with a heart rate of 74 bpm. Conclusion: 1. Normal EKG response to Lexiscan infusion 2. No Lexiscan induced chest pain or cardiac arrhythmia. 3. Normal blood pressure and heart rate response. 4. Sestamibi/sestamibi perfusion scan pending; see separate report. Electronically Signed On 03-02-2025 10:35:26 RESEARCH ANTHROPOLOGIST by Jordan Tolbert M.D. [email or web address]
--- NOTE | 2025-02-15 09:47 | NMCV_ITS ---
NM connor perf SPECT r/s* [id number] Carlos Welsh Age: 89 Gender: M : 1935 Exam Date: 02/15/2025 10:26 Ordering Phys: Adelso Luna MD ([email or web address]) Technologist: SABRINA Helms Exam Location: [facility] Indications: cp STRESS TEST Please [facility] for [facility] IMAGE PROTOCOL Rest/Stress 1 Lexiscan Day Radiopharmaceutical Dose (mCi) Administration Site Administered by Rest: Tc-99m 10.5 IV Klarissa Rodriguez, CLOTH FOLDER MACHINE Sestamibi Stress:Tc-99m 32.4 IV Klarissa Rodriguez, CLOTH FOLDER MACHINE Sestamibi Rest: 15-Feb-2025 60 Discovery 630 Stress: 15-Feb-2025 30 Discovery 630 0.4mg Lexiscan. Supine position only as patient was unable to lay prone. SPECT RESULTS Technical Quality: Good Raw Data Analysis: Normal Image Corrections: No attenuation or motion correction applied Summed Stress Score: 5 Summed Rest Score: 2 Summed Difference Score: 3 PERFUSION FINDINGS Small to medium sized area of reversible perfusion defect seen in the anterior wall. Medium sized area of partially reversible perfusion defect seen in the lateral and anterolateral wall consistent with medium sized area of prior infarct with meagan-infarct ischemia in left circumflex artery territory. FUNCTIONAL RESULTS (calculated via Gated SPECT) Stress Image LV EF (%): 55 Stress EDV (mL):85 TID: 1.3 Stress ESV (mL):38 FUNCTIONAL FINDINGS: There is normal left ventricular systolic function. TID ratio is elevated. IMPRESSIONS 1. Abnormal myocardial perfusion imaging with small to medium sized area of ischemia seen in the LAD territory. 2. Medium sized area of prior infarct with medium sized area of meagan-infarct ischemia seen in the left cirucmflex artery territory. 3. LV systolic function is normal. 4. TID ratio is elevated. This may represent multivessel coronary artery disease Jordan Tolbert MD (Electronically Signed) Final Date: 16 February 2025 10:51 S
[2025-02-15 11:21] VITALS: BP 105/61; PULSE 75
--- NOTE | 2025-02-15 15:00 | USCV_ITS ---
Carlos Welsh Age: 89 Gender: M : 1935 Exam Date: 02/15/2025 13:04 Ordering Phys: Adelso Luna MD ([email or web address]) Technologist: Exam Location: [facility] – [place] Indication: cp sob BP: 123 / 70 HR: 73 Rhythm: Sinus Technical Quality: MEASUREMENTS (Male / Female) Normal Values 2D ECHO LV Diastolic Diameter PLAX 4.3 cm 4.2 - 5.9 / 3.9 - 5.3 cm IVS Diastolic Thickness 1.3 cm 0.6 - 1.0 / 0.6 - 0.9 cm IVS Systolic Thickness 1.7 cm LVPW Diastolic Thickness 1.2 cm 0.6 - 1.0 / 0.6 - 0.9 cm LVPW Systolic Thickness 1.2 cm LVOT Diameter 2.1 cm LV Ejection Fraction 2D Teich 63.5 % LV Ejection Fraction MOD 4C 70.4 % LV Ejection Fraction MOD 2C 47.3 % LV Ejection Fraction 2C AL 47.2 % LA Diameter 3.1 cm RA Systolic Volume 4C AL 33.4 ml RA Systolic Volume 4C MOD 32.5 ml Aorta at Sinotubular Diameter 3.2 cm M-MODE LA Ao Ratio MM 1.0 AV Cusp Separation MM 2.7 cm DOPPLER AV Peak Velocity 95.0 cm/s LVOT Peak Velocity 68.0 cm/s AV Area Cont Eq vti 3.0 cm squared AV Area Cont Eq pk 2.4 cm squared MV Peak Velocity 126.0 cm/s MV Area PHT 5.2 cm squared TR Peak Velocity 188.0 cm/s TR Peak Gradient 14.1 mmHg TV Peak E Velocity 79.0 cm/s PV Peak Velocity 85.0 cm/s FINDINGS Left Ventricle Technically difficult study. Normal left ventricular cavity size. Mildly decreased left ventricular systolic function. There is mild global hypokinesis. Left ventricular ejection fraction is estimated at 47%. Mild concentric left ventricular hypertrophy. Stage I left ventricular diastolic dysfunction. Right Ventricle Normal right ventricular size and systolic function. Right Atrium Normal right atrial size. Left Atrium Normal left atrial size. IA Septum Normal appearance of the interatrial septum. Mitral Valve Trace mitral valve regurgitation. Aortic Valve Aortic valve not well visualized. No aortic valve stenosis. No aortic valve regurgitation. Tricuspid Valve Normal tricuspid valve structure. Trace regurgitation. Normal pulmonary pressure. Pulmonic Valve Normal pulmonic valve structure. No pulmonic valve stenosis or regurgitation. Pericardium No pericardial effusion. Aorta Normal diameter of the aortic root and ascending thoracic aorta. IVC Normal IVC diameter. CONCLUSIONS Technically difficult study. Normal left ventricular cavity size. Mildly decreased left ventricular systolic function. There is mild global hypokinesis. Left ventricular ejection fraction is estimated at 47%. Mild concentric left ventricular hypertrophy. Stage I left ventricular diastolic dysfunction. Normal right ventricular size and systolic function. No significant valvular abnormalities. Adelso Luna MD, FACC (Electronically Signed) Final Date: 20 February 2025 13:47 S
== END 2025-02-15 09:19 | disposition home or self-care (01) ==
LOC: CDL 09:20
PROVIDERS: PCP Registered Nurse; Visit Provider Internal Medicine Cardiovascular Disease
DX: I25.10 Atherosclerotic heart disease of native coronary artery without angina pectoris (principal); R07.9 Chest pain, unspecified; R06.02 Shortness of breath; I51.7 Cardiomegaly; I51.89 Other ill-defined heart diseases; R94.39 Abnormal result of other cardiovascular function study
CPT/HCPCS: 36415; 78452; 93017; 93306; 96374; A9500; J2785

== ENCOUNTER 2025-03-03 09:56 | Outpatient (CLI) | payer MEDICARE, SELFPAY ==
[2025-03-03 11:21] LABS: Anion Gap 14.7 (5-19); Blood Urea Nitrogen 12 mg/dL (8-23); Calcium 9.1 mg/dL (8.5-10.5); Carbon Dioxide 26 mmol/L (22-29); Chloride 106 mmol/L (98-107); Glucose 118 mg/dL (65-115); NT Pro B Type Natriuretic Pept 492 pg/mL (0-450); Osmolality Calculated 295 mOsm/kg (285-295); Potassium 4.7 mmol/L (3.5-5.1); Sodium 142 mmol/L (136-145)
== END 2025-03-03 09:57 | disposition home or self-care (01) ==
LOC: LAB 09:57
PROVIDERS: PCP Registered Nurse; Visit Provider Internal Medicine Cardiovascular Disease
DX: Z98.890 Other specified postprocedural states (principal); Z86.79 Personal history of other diseases of the circulatory system; Z95.5 Presence of coronary angioplasty implant and graft; R06.09 Other forms of dyspnea; I25.10 Atherosclerotic heart disease of native coronary artery without angina pectoris; I48.91 Unspecified atrial fibrillation; I48.92 Unspecified atrial flutter; E78.5 Hyperlipidemia, unspecified
CPT/HCPCS: 36415; 80048; 83880